=== PATIENT | male | born 1980 | race African-American/Black ===

== ENCOUNTER 2021-01-21 04:54 | Emergency (ER) | payer MEDICAID ==
[~2021-01-21] VITALS: Ht 170.2 cm; Wt 70.0 kg
[2021-01-21 04:59] VITALS: BP 148/86
[2021-01-21 06:03] LABS: BASOPHILS % 0.8 % (0.0-2.0); EOSINOPHILS % 7.5 % (0.0-5.0); HEMATOCRIT. 41.4 % (42.0-52.0); HEMOGLOBIN. 13.6 g/dL (14.0-18.0); LYMPHOCYTES % 28.9 % (20.0-50.0); MEAN CORPUSCULAR HEMOGLOBIN 30.9 pg (28.0-32.0); MEAN CORPUSCULAR VOLUME 94.1 fL (80.0-94.0); MEAN PLATELET VOLUME 6.9 fl (7.4-10.4); MONOCYTES % 6.1 % (2.0-8.0); NEUTROPHILS % 56.7 % (40.0-76.0); PLATELET 304 x1000/uL (130-400); RED CELL DISTRIBUTION WIDTH 14.4 % (11.6-14.6)
[2021-01-21 06:06] LABS: CHLORIDE 106 mEq/L (98-107)
[2021-01-21 06:12] LABS: ETHANOL BLOOD < 10 mg/dL
== END 2021-01-21 06:02 | disposition left against medical advice (07) ==
LOC: ER 04:54
DX: F14.14 Cocaine abuse with cocaine-induced mood disorder (principal); R00.2 Palpitations; F41.9 Anxiety disorder, unspecified
CPT/HCPCS: 36415; 80053; 80320; 85025; 93005; 99284; Z7610; G0480